=== PATIENT | male | born 1985 | race African-American/Black ===

== ENCOUNTER 2016-11-18 14:36 | Emergency (ER) | payer OTHER ==
[2016-11-18] MEDS ORDERED: ACETAMINOPHEN TAB 500 MG TAB PO STA (15:12)
--- NOTE | 2016-11-18 15:12 | ED ---
General Adult HPI - General Chief complaint: Upper Respiratory Infection Stated complaint: head congestion/cough Time Seen by Provider: 11/18/16 15:05 Source: patient, RN notes reviewed Mode of arrival: ambulatory Limitations: no limitations - History of Present Illness Initial comments: Is a 31-year-old male presents with cough, congestion, headache and fever 5 days. Patient states he has been trying Tylenol and Motrin for the fever. Patient states his cough is productive of yellow sputum. Patient admits to some congestion and sinus pressure. Patient admits to mild headaches but denies any neck pain or sore throat. Patient denies any otalgia. Patient did not get a flu shot this year. Patient admits to tobacco use. Patient denies any recent shortness breath, chest pain, abdominal pain, nausea/vomiting/ diarrhea, back pain, numbness, tingling, hematuria, or visual changes, or any other complaints. - Related Data Home Medications Medication Instructions Recorded Confirmed No Known Home Medications [No 05/13/15 11/18/16 Known Home Medications] Previous Rx's Medication Instructions Recorded Benzonatate [Tessalon Perles] 100 mg PO TID 3 Days 11/18/16 Allergies Allergy/AdvReac Type Severity Reaction Status Date / Time No Known Allergies Allergy Verified 11/18/16 14:57 Review of Systems ROS Statement: Those systems with pertinent positive or pertinent negative responses have been documented in the HPI. ROS Other: All systems not noted in ROS Statement are negative. Past Medical History Past Medical History: No Reported History History of Any Multi-Drug Resistant Organisms: None Reported Past Surgical History: No Surgical Hx Reported Past Psychological History: No Psychological Hx Reported Smoking Status: Current every day smoker Past Alcohol Use History: None Reported Past Drug Use History: None Reported General Exam - General Exam Comments Initial Comments: General: The patient is awake and alert, in no distress, and does not appear acutely ill. Eye: Pupils are equal, round and reactive to light, extra-ocular movements are intact. No nystagmus. There is normal conjunctiva bilaterally. No signs of icterus. Ears: TMs pink and pearly with intact cone of light bilaterally. Normal external ear canals Nose: Nasal turbinates are erythematous and mildly edematous. No discomfort to palpation of the frontal or maxillary sinuses. Mouth and throat: There are moist mucous membranes and no oral lesions. Neck: The neck is supple, there is no tenderness or JVD. No meningismus. Cardiovascular: There is a regular rate and rhythm. No murmur, rub or gallop is appreciated. Respiratory: Lungs are clear to auscultation, respirations are non-labored, breath sounds are equal. No wheezes, stridor, rales, or rhonchi. Musculoskeletal: Normal ROM, no tenderness. Strength 5/5. Sensation intact. Radial pulses equal bilaterally 2+. Neurological: A&O x 3. CN II-XII intact, There are no obvious motor or sensory deficits. Coordination appears grossly intact. Speech is normal. Skin: Skin is warm and dry and no rashes or lesions are noted. Psychiatric: Cooperative, appropriate mood & affect, normal judgment. Limitations: no limitations Course Vital Signs 11/18/16 14:47 Temperature 102 F H Pulse Rate 85 Respiratory 20 Rate Blood Pressure 150/70 O2 Sat by Pulse 99 Oximetry Medical Decision Making - Medical Decision Making This is a 31-year-old male presents with cough, congestion and fever 5 days. On physical exam patient is febrile the EC will be given Tylenol for this. Lungs are clear to auscultation bilaterally. There is mild erythema to the nasal turbinates bilaterally. A chest x-ray was done and reviewed showing: No acute process. Reported by Dr. Dobson. Influenza was checked and came back positive for influenza B. Patient is a 99% on room air. Discussed results with patient. I discussed [id number] decongestants and Tylenol/Motrin for fever. I discussed patient will be given a prescription for Tessalon Perles due to painful cough. I discussed the patient should drink plenty of fluids. Patient was given a dose of Motrin before discharge. I discussed return parameters.Discussed that patient should follow up with PCP in one to 2 days or return to the [facility] for any worsening symptoms or any further concerns. Patient was receptive to this plan patient was discharged home. - Lab Data Lab Results 11/18/16 Range/Units 15:15 Influenza Type A RNA Not Detected (Not Detectd) Influenza Type B (PCR) Detected A (Not Detectd) Disposition Clinical Impression: Influenza B Disposition: HOME SELF-CARE Condition: Good Instructions: Influenza (ED), Influenza Vaccine (ED) Additional Instructions: Nasal [id number] decongestants. Please continue Motrin and/or Tylenol as needed for fever. Please use Tessalon Perles as prescribed. Please be sure to drink plenty of fluids.Please use medication as discussed. Please follow-up with family doctor in the next 2 days of symptoms have not improved. Please return to emergency room if the symptoms increase or worsen or for any other concerns. Prescriptions: Benzonatate [Tessalon Perles] 100 mg PO TID 3 Days Referrals: None,Stated [Primary Care Provider] - 1-2 days Marielle Hein MD [REFERRING] - 1-2 days Kennedi Harkins III, MD [STAFF PHYSICIAN] - 1-2 days Chioma Yang MD [STAFF PHYSICIAN] - 1-2 days Time of Disposition: 16:07
--- NOTE | 2016-11-18 15:26 | XR ---
EXAMINATION TYPE: XR chest 2V DATE OF EXAM: 11/18/2016 3:21 PM COMPARISON: 04/01/2014 TECHNIQUE: PA and lateral views submitted. HISTORY: Pain and fever FINDINGS: The lungs are clear and there is no pneumothorax, pleural effusion, or focal pneumonia. Apical pleu ral thickening noted. IMPRESSION: 1. No acute process.
[2016-11-18] MEDS ORDERED: IBUPROFEN 400 MG TAB PO STA (16:10)
[2016-11-18 16:13] VITALS: BP 120/70; PULSE 78; RESP 18; TEMP 101.9
== END 2016-11-18 16:16 | disposition home or self-care (01) ==
LOC: EC 14:36
DX: J10.1 Influenza due to other identified influenza virus with other respiratory manifestations (principal); F17.200 Nicotine dependence, unspecified, uncomplicated
CPT/HCPCS: 71020; 87502; 99283

== ENCOUNTER 2018-02-24 08:21 | Emergency (ER) | payer OTHER ==
[2018-02-24 08:28] VITALS: BP 147/85; PULSE 77; RESP 18; TEMP 99.1
--- NOTE | 2018-02-24 08:58 | ED ---
General Adult HPI - General Chief complaint: Upper Respiratory Infection Stated complaint: Congested, Throat Pain Time Seen by Provider: 02/24/18 08:51 Source: patient, RN notes reviewed Mode of arrival: ambulatory Limitations: no limitations - History of Present Illness Initial comments: Patient 32-year-old male presenting to the emergency room today with chief complaint of sore throat over the last 2 days. Patient also admits to waking up this morning with some body aches. He doesn't that he's felt hot at times related to go to work earlier today and had to leave because he was not feeling well. Patient states his throat hurts when he swallows. He denies any difficulty swallowing. Patient does admit that he's had some sinus congestion and increased rhinorrhea. He does admit to some pressure over the sinuses on the right side. He denies any other complaints. Patient denies any recent shortness of breath, chest pain, back pain, abdominal pain, nausea or vomiting, numbness or tingling, dysuria or hematuria, headaches or visual changes, or any other complaints. - Related Data Home Medications Medication Instructions Recorded Confirmed Loratadine [Claritin] 10 mg PO DAILY 02/24/18 02/24/18 Previous Rx's Medication Instructions Recorded Azithromycin [Zithromax Z-pack] 0 mg PO DIRECTED #6 tab 02/24/18 Fluticasone Propionate [Flonase 1 - 2 spray EA NOSTRIL DAILY 5 02/24/18 Allergy Relief] Days ml Allergies Allergy/AdvReac Type Severity Reaction Status Date / Time No Known Allergies Allergy Verified 02/24/18 08:42 Review of Systems ROS Statement: Those systems with pertinent positive or pertinent negative responses have been documented in the HPI. ROS Other: All systems not noted in ROS Statement are negative. Past Medical History Past Medical History: No Reported History History of Any Multi-Drug Resistant Organisms: None Reported Past Surgical History: No Surgical Hx Reported Past Psychological History: No Psychological Hx Reported Smoking Status: Current every day smoker Past Alcohol Use History: None Reported Past Drug Use History: None Reported General Exam - General Exam Comments Initial Comments: General: The patient is awake and alert, in no distress, and does not appear acutely ill. Eye: Pupils are equal, round and reactive to light, extra-ocular movements are intact. No nystagmus. There is normal conjunctiva bilaterally. No signs of icterus. Ears, nose, mouth and throat: There are moist mucous membranes and no oral lesions. Increased redness erythema to the posterior pharynx. Uvula is midline. Patient swallows without any difficulty. Tender over the sinuses both frontal and maxillary. Neck: The neck is supple, there is no tenderness or JVD. Cardiovascular: There is a regular rate and rhythm. No murmur, rub or gallop is appreciated. Respiratory: Lungs are clear to auscultation, respirations are non-labored, breath sounds are equal. No wheezes, stridor, rales, or rhonchi. Musculoskeletal: Normal ROM, no tenderness. Strength 5/5. Sensation intact. Pulses equal bilaterally 2+. Neurological: A&O x 3. CN II-XII intact, There are no obvious motor or sensory deficits. Coordination appears grossly intact. Speech is normal. Skin: Skin is warm and dry and no rashes or lesions are noted. Psychiatric: Cooperative, appropriate mood & affect, normal judgment. Limitations: no limitations Course Vital Signs 02/24/18 08:26 Temperature 99.1 F Pulse Rate 77 Respiratory 18 Rate Blood Pressure 147/85 O2 Sat by Pulse 100 Oximetry Medical Decision Making - Medical Decision Making Patient will be treated for sinus infection. Be started on azithromycin and Flonase. Advised to use [id number] medications well. Disposition Clinical Impression: Acute sinusitis Disposition: HOME SELF-CARE Condition: Good Instructions: Sinusitis (ED) Additional Instructions: Please use medication as discussed. Please follow-up with family doctor in the next 2 days of symptoms have not improved. Please return to emergency room if the symptoms increase or worsen or for any other concerns. Prescriptions: Azithromycin [Zithromax Z-pack] 0 mg PO DIRECTED #6 tab Fluticasone Propionate [Flonase Allergy Relief] 1 - 2 spray EA NOSTRIL DAILY 5 Days ml Is patient prescribed a controlled substance at d/c from ED?: No Referrals: None,Stated [Primary Care Provider] - 1-2 days Time of Disposition: 08:57
== END 2018-02-24 09:03 | disposition home or self-care (01) ==
LOC: EC 08:21
DX: J01.90 Acute sinusitis, unspecified (principal); F17.200 Nicotine dependence, unspecified, uncomplicated; Z79.899 Other long term (current) drug therapy
CPT/HCPCS: 99283

== ENCOUNTER → 2020-07-21 | Outpatient (CLI) | payer SELFPAY ==
[2020-07-22 00:45] LABS: Hemoglobin A1C 10.7 % (4.0-6.0)
[2020-07-22 01:48] LABS: African American GFR (CKD) 76.5 (60.0-200.0); Anion Gap 10.9 mmol/L (4.00-12.00); BUN/Creat Ratio 13.57 Ratio (12.00-20.00); Calcium 9.8 mg/dL (8.7-10.3); Carbon Dioxide 23.1 mmol/L (21.6-31.8)
== END | disposition home or self-care (01) ==
LOC: LABWHC1 14:06
PROVIDERS: ATTEND Internal Medicine
DX: E11.9 Type 2 diabetes mellitus without complications (principal)
CPT/HCPCS: 36415; 80048; 83036